=== PATIENT | male | born 1965 | race African-American/Black ===

== ENCOUNTER → 2016-07-14 | Outpatient (CLI) | payer OTHER ==
--- NOTE | 2016-07-14 10:42 | REP ---
MRI LEFT KNEE: TECHNIQUE: Axial proton density fat saturation, sagittal proton density T2 STIR, water excitation, coronal proton density, proton density fat saturation. There is an extensive complex tear of the anterior and posterior horns of lateral meniscus. There is also an extensive complex tear of the posterior horn of the medial meniscus extending somewhat into the anterior horn. The cruciate and collateral ligaments are intact. The extensor mechanism is intact. There is moderate diffuse chondromalacia of the patella with subchondral marrow edema in the lateral patellar facet. There is severe chondromalacia throughout the lateral joint compartment with moderate diffuse chondromalacia in the medial joint compartment with scattered subchondral marrow edema and tiny subchondral cysts. There is moderate spurring of the lateral femoral condyle tibial plateau. There is a mild joint effusion. I do not see a popliteal cyst. IMPRESSION: Extensive tears of the medial and lateral menisci. 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 There is scattered subchondral marrow edema and cystic change. Small joint effusion. Signed by Kwame Argueta MD 07/14/2016 05:41 P
== END ==
LOC: M RAD 07:27
PROVIDERS: ATTEND Surgery
DX: M23.301 Other meniscus derangements, unspecified lateral meniscus, left knee (principal); M23.304 Other meniscus derangements, unspecified medial meniscus, left knee; M25.462 Effusion, left knee

== ENCOUNTER → 2017-03-03 | Outpatient (CLI) | payer OTHER ==
--- NOTE | 2017-03-03 11:28 | REP ---
Chest x-ray: Two views. History: Preop chest x-ray prior to total knee replacement. Findings: The lungs are well inflated and clear. The pleural angles are sharp. Heart size is normal. Pulmonary vasculature is not increased. No significant bony abnormality is seen. Impression: No active disease. Signed by Lucio Clark MD 03/03/2017 02:24 P
== END ==
LOC: M RAD 09:04
PROVIDERS: ATTEND Surgery
DX: Z01.818 Encounter for other preprocedural examination (principal)

== ENCOUNTER → 2017-03-05 | Outpatient (CLI) | payer OTHER ==
--- NOTE | 2017-03-06 02:25 | REP ---
Clinical: preoperative evaluation. Comparison: 03/03/2017. Technique: PA and lateral. Findings: The mediastinum and cardiac silhouette are normal. The lung whitten are clear and without acute consolidation, effusion, or pneumothorax. The skeletal structures are intact and normal. Impression: 1. No acute cardiopulmonary process. Signed by James Olmedo MD 03/06/2017 02:17 A
== END ==
LOC: M RAD 09:03
PROVIDERS: ATTEND Surgery
DX: Z01.818 Encounter for other preprocedural examination (principal)

== ENCOUNTER → 2017-05-25 | Outpatient (CLI) | payer OTHER | LOC: M RAD 09:08 | DX: Z09 Encounter for follow-up examination after completed treatment for conditions other than malignant neoplasm (principal); Z98.890 Other specified postprocedural states | CPT/HCPCS: 73564 ==

== ENCOUNTER → 2017-09-14 | Outpatient (CLI) | payer OTHER | LOC: M RAD 08:34 | DX: Z96.652 Presence of left artificial knee joint (principal) ==

== ENCOUNTER → 2018-04-27 | Outpatient (CLI) | payer OTHER ==
--- NOTE | 2018-04-27 10:43 | REP ---
LEFT KNEE, FIVE VIEWS: HISTORY: Pain. COMPARISON: 09/14/2017. The patient is status post left total knee replacement. There is no acute fracture or dislocation. An osteophyte is present on the superior aspect of the patella. IMPRESSION: The patient is status post left total knee replacement. Electronically Signed by Harvey Zhu MD 04/27/2018 10:50 A
== END ==
LOC: M RAD 08:40
PROVIDERS: ATTEND Surgery
DX: M25.562 Pain in left knee (principal); Z96.652 Presence of left artificial knee joint